=== PATIENT | male | born 1970 | race African-American/Black ===

== ENCOUNTER 2017-03-11 15:47 | Emergency (ER) | payer MEDICAID ==
[~2017-03-11] VITALS: Ht 172.7 cm; Wt 113.0 kg
[~2017-03-11 15:47] MED LIST: DIPH-423 PO; HYDR-565 PO; HYDR-569 PO; PRED50TA PO
[2017-03-11] MEDS ORDERED: HYDROmorphone 1 mg/ml syringe IV ONE (17:25)
[2017-03-11] MEDS: normal saline 1000ml 1,000 ML IV SCH ×3 (18:02→19:25)
[2017-03-11] MEDS: morphine sulfate 8 MG/ML SYRINGE IV ONE ×2 (18:07→18:13)
[2017-03-11] MEDS ORDERED: morphine sulfate 8 MG/ML SYRINGE IV ONE ×3 (18:15→20:25)
[2017-03-11] MEDS ORDERED: ondansetron/PF 4mg/2ml inj IV ONE (18:30)
[2017-03-11 18:34] LABS: ABSOLUTE RETICS # 182500 /CUMM (23000-93000); BASOPHILS % (AUTO) 0.1 % (0-1); EOSINOPHILS % (AUTO) 0.2 % (0-6); HEMATOCRIT 43.5 % (42.0-52.0); LYMPHOCYTES # (AUTO) 0.2 X10'3 (1.1-4.8); LYMPHOCYTES % (AUTO) 2.1 % (21-51); MEAN CORPUSCULAR HEMOGLOBIN 23.2 PG (27.0-31.0); MEAN CORPUSCULAR HGB CONC 32.2 % (33.0-36.5); MEAN CORPUSCULAR VOLUME 72.1 FL (78-98); MONOCYTES # (AUTO) 0.1 X10'3 (0-0.9); MONOCYTES % (AUTO) 0.8 % (2-12); NEUTROPHILS # (AUTO) 7.4 X10'3 (1.8-7.7); NEUTROPHILS % (AUTO) 96.8 % (42-75); PLATELET COUNT 151 X10'3 (140-440); RED BLOOD COUNT 6.03 X10'6 (4.70-6.10); WHITE BLOOD COUNT 7.7 X10'3 (4.5-11.0)
[2017-03-11 18:57] LABS: ALANINE AMINOTRANSFERASE 19 U/L (12-78); ALBUMIN 3.8 G/DL (3.4-5.0); ALBUMIN/GLOBULIN RATIO 1.1 (1.1-1.5); ALKALINE PHOSPHATASE 58 IU/L (46-116); ANION GAP 12 (8-16); ASPARTATE AMINO TRANSFERASE 17 U/L (10-37); BILIRUBIN,TOTAL 1.3 MG/DL (0.1-1.0); BLOOD UREA NITROGEN 15 MG/DL (7-18); BUN/CREATININE RATIO 18.8 (5.4-32.0); CALCIUM 8.5 MG/DL (8.5-10.1); CHLORIDE 106 MMOL/L (99-107); GLUCOSE 102 MG/DL (70-104); POTASSIUM 3.5 MMOL/L (3.5-5.1); SODIUM 144 MMOL/L (135-145); TOTAL CARBON DIOXIDE 26.1 MMOL/L (24-32); TOTAL PROTEIN 7.3 G/DL (6.4-8.2); eGFR > 90 ML/MIN
[2017-03-11 20:21] LABS: CLARITY,URINE CLEAR (Clear); COLOR,URINE YELLOW (Yellow); GLUCOSE, URINE NEGATIVE (Neg); KETONES,URINE TRACE mg/dl (Neg); LEUKOCYTE ESTERASE ,URINE NEGATIVE (Neg); NITRITES, URINE NEGATIVE (Neg); OCCULT BLOOD,URINE NEGATIVE (Neg); PROTEIN,URINE NEGATIVE (Neg); UROBILINOGEN,URINE 0.2 E.U/dL (0.2-1.0)
[2017-03-11 20:23] LABS: UA COLLECTION TYPE VOIDED
[2017-03-11] MEDS ORDERED: metoclopramide 5 mg/ml inj IV ONE (21:45)
[2017-03-11] MEDS ORDERED: diphenhydrAMINE 50 mg/ml inj IV ONE (21:45)
[2017-03-11 22:56] VITALS: BP 127/69
== END 2017-03-11 22:58 | disposition home or self-care (01) ==
LOC: ER 15:47
DX: D57.00 Hb-SS disease with crisis, unspecified (principal); G43.909 Migraine, unspecified, not intractable, without status migrainosus; G89.29 Other chronic pain; F17.210 Nicotine dependence, cigarettes, uncomplicated; F12.10 Cannabis abuse, uncomplicated; Z87.442 Personal history of urinary calculi; Z88.2 Allergy status to sulfonamides
CPT/HCPCS: 36415; 70450; 70486; 71010; 80053; 81003; 85025; 85045; 96374; 96375; 96376; 99285; J1200; J2270; J2405; J2765; J7030

== ENCOUNTER 2017-07-02 17:06 | Emergency (ER) | payer MEDICAID ==
[~2017-07-02] VITALS: Ht 172.7 cm; Wt 94.1 kg
[2017-07-02 17:20] VITALS: BP 117/107
== END 2017-07-02 23:04 | disposition left against medical advice (07) ==
LOC: ER 17:06
DX: H92.09 Otalgia, unspecified ear (principal); Z53.21 Procedure and treatment not carried out due to patient leaving prior to being seen by health care provider